=== PATIENT | male | born 1970 | race Caucasian/White ===

== ENCOUNTER 2023-09-27 13:15 | Outpatient (CLI) | payer OTHER | END 2023-09-27 15:47 | disposition home or self-care (01) | LOC: LAB 13:15 | PROVIDERS: ATTEND Urology | DX: R97.20 Elevated prostate specific antigen [PSA] (principal) ==

== ENCOUNTER 2023-10-08 07:11 | Outpatient (CLI) | payer OTHER | END 2023-10-08 07:19 | disposition home or self-care (01) | LOC: SONOGRAMA 07:11 | PROVIDERS: ATTEND Urology | DX: C61 Malignant neoplasm of prostate (principal); D29.1 Benign neoplasm of prostate; N41.1 Chronic prostatitis ==